=== PATIENT | female | born 2000 | race Two or more races ===

== ENCOUNTER 2022-05-23 08:30 | Inpatient (IN) | payer OTHER ==
[~2022-05-23] VITALS: Ht 160 cm; Wt 63.5 kg
[2022-05-23] MEDS ORDERED: SYNTHROID75 MCG PO (10:02)
[2022-05-23] MEDS ORDERED: SYNTHROID50 MCG PO (10:03)
[2022-05-23] MEDS ORDERED: SINGULAIR10 MG PO (10:03)
[2022-05-23] MEDS ORDERED: SPRINTEC 28 DA1 EACH PO (10:04)
[2022-05-25] MEDS ORDERED: FLONASE16 GM (08:01)
== END 2022-05-26 14:50 | disposition home or self-care (01) | DRG 743 ==
LOC: OB/GYN 05-25 05:52 → O/R 05-25 05:52 → SURG 05-25 08:15 → OB/GYN 05-25 08:38
PROVIDERS: ADMIT Obstetrics & Gynecology; ATTEND Obstetrics & Gynecology
PROC: 0DNW0ZZ Release Peritoneum, Open Approach (ICD-10-PCS; 2022-05-25)
PROC: 0UB10ZZ Excision of Left Ovary, Open Approach (ICD-10-PCS; principal; 2022-05-25 08:15)
DX: N83.02 Follicular cyst of left ovary (principal); N73.6 Female pelvic peritoneal adhesions (postinfective); Z20.822 Contact with and (suspected) exposure to COVID-19